=== PATIENT | female | born 1950 | race Caucasian/White ===

== ENCOUNTER → 2017-03-20 | Outpatient (CLI) | payer MEDICARE, OTHER ==
--- NOTE | 2017-03-20 09:45 | RAD ---
Indication: Cough and chest congestion. Time of exam 0829 hours. Correlation is made with prior chest from 06/22/2015. FINDINGS: The heart size is normal. The lungs are clear. No pleural effusion or pneumothorax is identified. The pulmonary vascularity is normal. IMPRESSION: No acute abnormality detected.
== END | disposition home or self-care (01) ==
LOC: DXRADRC 09:31
PROVIDERS: ATTEND Nurse Practitioner Family
DX: R09.89 Other specified symptoms and signs involving the circulatory and respiratory systems (principal); R05 Cough
CPT/HCPCS: 71020

== ENCOUNTER → 2017-08-17 | Outpatient (CLI) | payer MEDICARE, OTHER ==
--- NOTE | 2017-08-17 17:15 | RAD ---
CT sinus without contrast History: Perforation of the nasal septum, chronic sinusitis. Comparison: None. Technique: CT of the sinuses was performed without intravenous contrast. Axial, sagittal, and coronal reconstructions were obtained. Exposure: One or more of the following individualized dose reduction techniques were utilized for this examination: 1. Automated exposure control 2. Adjustment of the mA and/or kV according to patient size 3. Use of iterative reconstruction technique Findings: Both osteomeatal units are patent. The visualized paranasal sinuses are clear with no significant mucosal thickening. No polyps or masses are seen. No significant mucoperiosteal reaction is identified. There is absence of the anterior nasal septum. IMPRESSION: 1. Unremarkable CT of the sinuses. 2. Absence of the anterior nasal septum. Electronically signed by: Sravan Farrell MD (08/17/2017 5:12 PM) [place] [id number]
== END | disposition home or self-care (01) ==
LOC: CT 11:08
PROVIDERS: ATTEND Otolaryngology
DX: J34.89 Other specified disorders of nose and nasal sinuses (principal)
CPT/HCPCS: 70486